=== PATIENT | male | born 1955 | race Caucasian/White ===

== ENCOUNTER 2016-06-17 19:15 | Emergency (ER) | payer MEDICARE, MEDICAID ==
[~2016-06-17] VITALS: Ht 175.3 cm; Wt 100.2 kg
[2016-06-17 21:38] VITALS: BP 126/62
== END 2016-06-17 21:38 | disposition home or self-care (01) ==
LOC: ER 19:22
DX: S00.81XA Abrasion of other part of head, initial encounter (principal); I10 Essential (primary) hypertension; I25.110 Atherosclerotic heart disease of native coronary artery with unstable angina pectoris; I42.9 Cardiomyopathy, unspecified; F39 Unspecified mood [affective] disorder; R40.4 Transient alteration of awareness; Y08.89XA Assault by other specified means, initial encounter; Y93.89 Activity, other specified; Y92.89 Other specified places as the place of occurrence of the external cause; Y99.8 Other external cause status
CPT/HCPCS: 70450; 99284; A4606; Z7610